=== PATIENT | female | born 1955 | race Caucasian/White ===

== ENCOUNTER 2017-07-02 08:53 | Emergency (ER) | payer BC, OTHER ==
[~2017-07-02] VITALS: Ht 162.6 cm; Wt 59.1 kg
[2017-07-02] MEDS ORDERED: ZEBE1TAB PO (09:12)
[2017-07-02] MEDS ORDERED: IBUPROFEN 600 MG TAB PO ONE (09:30)
--- NOTE | 2017-07-02 10:42 | REP ---
LEFT WRIST, FOUR VIEWS: HISTORY: Pain. There is a nondisplaced intra-articular fracture of the distal radius. There is no dislocation. The joint spaces are normal in appearance. IMPRESSION: Nondisplaced intra-articular fracture of the distal radius. Signed by Ramy Cross MD 07/02/2017 10:43 A
[2017-07-02] MEDS ORDERED: PERC5TAB12 PO (11:02)
[2017-07-02 11:06] VITALS: BP 118/80
== END 2017-07-02 11:08 | disposition home or self-care (01) ==
LOC: M ED 08:53
DX: S52.502A Unspecified fracture of the lower end of left radius, initial encounter for closed fracture (principal); W19.XXXA Unspecified fall, initial encounter; Y92.89 Other specified places as the place of occurrence of the external cause; Y93.89 Activity, other specified; Y99.8 Other external cause status; Z79.899 Other long term (current) drug therapy; Z88.0 Allergy status to penicillin; Z88.1 Allergy status to other antibiotic agents; Z88.5 Allergy status to narcotic agent; F17.210 Nicotine dependence, cigarettes, uncomplicated

== ENCOUNTER → 2017-08-31 | Outpatient (RCR) | payer OTHER ==
[~2017-08-31] MED LIST: PERC5TAB12 PO; ZEBE1TAB PO
== END ==
LOC: M OT 08-22 08:51
PROVIDERS: ATTEND Physician Assistant
DX: S52.532D Colles' fracture of left radius, subsequent encounter for closed fracture with routine healing (principal); X58.XXXD Exposure to other specified factors, subsequent encounter; Y93.9 Activity, unspecified; Y92.9 Unspecified place or not applicable; Y99.8 Other external cause status

== ENCOUNTER 2017-09-07 10:49 | Outpatient (RCR) | payer OTHER | END 2017-10-01 | LOC: M OT 10:49 | DX: S52.532D Colles' fracture of left radius, subsequent encounter for closed fracture with routine healing (principal) | CPT/HCPCS: 97140 ==

== ENCOUNTER → 2017-10-17 | Outpatient (REF) | payer OTHER | LOC: M SFHCWAGY 15:32 | DX: Z12.4 Encounter for screening for malignant neoplasm of cervix (principal) ==

== ENCOUNTER → 2021-03-24 | Outpatient (CLI) | payer OTHER ==
--- NOTE | 2021-03-24 15:47 | REPMRS ---
Patient History The patient states she had a clinical breast exam in March 2021. Patient is postmenopausal. No known family history of cancer. Benign excisional biopsy of the left breast. 2 benign excisional biopsies of the right breast. Patient states no breast complaints today. Patient has signed MRS History Sheet. Digital Woman Screen Mammo: March 24, 2021 - Exam #: [id number] Bilateral CC and MLO view(s) were taken. Technologist: Lana Kennedy, Technologist Prior study comparison: May 07, 2018, bilateral digital mammo screening bilat, performed at [facility]. October 22, 2015, bilateral digital mammo screening bilat, performed at [facility]. February 28, 2014, bilateral digital mammo screening bilat, performed at [facility]. FINDINGS: The breast tissue is extremely dense which could obscure a lesion on mammography. The [facility] volumetric breast density category is: D. There is an extremely dense symmetrical pattern of residual fibroglandular tissue. There has been no change in the appearance of the mammogram from the previous studies. There is no interval development of dominant mass, archetectural distortion, or grouped microcalcifications suggestive of malignancy. 3-D tomosynthesis shows no additional findings. Assessment: BI-RADS/ACR category 1 mammogram. Negative Mammogram. Recommendation Routine screening mammogram of both breasts in 1 year (for women over age 40). This patient's [facility] Lifetime Breast Cancer RIsk is estimated at 5.2 %. This mammogram was interpreted with the aid of an FDA-approved computer-aided dectection system. Electronically Signed By: Augustine Casillas MD 03/24/21 [id number]
== END ==
LOC: M WHC 14:04
PROVIDERS: ATTEND Advanced Practice Midwife
DX: Z12.31 Encounter for screening mammogram for malignant neoplasm of breast (principal); Z78.0 Asymptomatic menopausal state; Z86.018 Personal history of other benign neoplasm

== ENCOUNTER → 2021-03-24 | Outpatient (REF) | payer OTHER | LOC: M SFHCWAGY 10:00 | PROVIDERS: ATTEND Advanced Practice Midwife | DX: Z12.4 Encounter for screening for malignant neoplasm of cervix (principal); Z12.31 Encounter for screening mammogram for malignant neoplasm of breast; Z78.0 Asymptomatic menopausal state; Z86.018 Personal history of other benign neoplasm | CPT/HCPCS: 77063; 77067; 87624; G0123; G0463 ==